=== PATIENT | male | born 1955 | race Caucasian/White ===

== ENCOUNTER 2024-07-22 11:09 | Emergency (ER) | payer MEDICARE, OTHER, SELFPAY ==
[2024-07-22 11:11] VITALS: BP 132/76
[2024-07-22 12:33] VITALS: BMI 26.4
--- NOTE | 2024-07-22 12:49 | ED.GENMED ---
History of Present Illness
General
Chief Complaint: Numbness
Source: patient
Time Seen by Provider: 07/22/24 11:58
History of Present Illness
History of Present Illness:
69yoM with a history of myasthenia gravis and herniated disc presenting for evaluation of left leg numbness. Patient was playing [employer] in the [employer] today around 10 AM when he started to notice tingling in his left anterior thigh. The
paresthesias extended from the hip to the knee. He denies any associated weakness. No other extremities are affected. His symptoms have mostly resolved at this time but now he is having some mild paresthesias in the left lateral hip region.
Patient was on a recent mission trip and returned home 3 days ago. He states he was doing a large amount of physical activity during this trip. He denies any trauma. No back pain, incontinence, saddle anesthesia. He denies any symptoms of a
myasthenia exacerbation currently. He has a history of a herniated disc last year which was managed conservatively. He believes the R L4 disc was affected at that time.
Past History
Past History
ED Past Medical History: None
ED Past Surgical History: Appendectomy
Social History
Tobacco: Non-smoker
Personal:
Living: with family
Employment: Employed (Teacher )
Phy Exam
General Physical Exam
General Presentation: well appearing and no apparent distress
General age: appears stated age
General Skin: warm and dry
General Habitus: normal
General Mental: alert
General Hydration: appears well hydrated
ENT Exam
ENT Exam: normocephalic
Cardiovascular Exam
Cardiovascular Exam: normal peripheral pulses (2+ PT pulses bilaterally)
Pulmonary Exam
Pulmonary Exam: no respiratory distress
Neurological Exam
Neurological Exam: alert, CN II-XII intact, no motor deficits, no sensory deficits and other (5/5 strength in all extremities. No gross sensory deficit appreciated. CN 2-12 grossly intact. Normal finger to nose and heel to belle bilaterally. 2+
patellar reflexes bilaterally.)
[place] Coma Scale
Eye Opening: Spontaneous
Verbal Response: Oriented
Motor Response: Obeys Commands
GCS Total Score: 15
Musculoskeletal Exam
Musculoskeletal Exam: other (No tenderness to lumbar region or L leg. Full ROM of L hip and knee without pain. Negative straight leg raise.)
Skin Exam
Skin Exam: normal color and warm/dry
Psychiatric Exam
Psychiatric Exam: normal mood/affect
Course
Orders/Labs/Results
Orders:
Orders
07/22/24 12:17
CT Lumbar Spine W/o Iv Contras Urgent
Comment:
Reason For Exam: L leg numbness
Vital Signs
Initial and Last Documented VS:
Initial Vital Signs
Temp Pulse Resp BP Pulse Ox
98.1 F 61 18 132/76 98
07/22/24 11:11 07/22/24 11:11 07/22/24 11:11 07/22/24 11:11 07/22/24 11:11
Last Documented Vital Signs
Temp Pulse Resp BP Pulse Ox
98.1 F 58 18 108/54 98
07/22/24 11:11 07/22/24 13:00 07/22/24 13:00 07/22/24 13:00 07/22/24 13:00
MDM/Problems Addressed
Differential Diagnosis Includes:
69yoM here with L anterior thigh paresthesias that began this morning. No associated weakness of the extremity. No other extremities affected. Symptoms mostly resolved currently. Hx of herniated disc. VSS. He is well appearing in no distress. LLE is
neurovascularly intact with normal patellar reflex. Remainder of neuro exam is WNL. Differential diagnosis includes but is not limited to: lumbar radiculopathy, sciatica, doubt CVA
Initial ED plan: Check CT lumbar spine.
*Critical Care Note
Total Time (30-74mins, 75-104mins- exclusive of procedures): Not Applicable
Update Note
Update Note:
CT shows multilevel degenerative changes most pronounced at L4/L5. Findings overall similar to prior MRI last year. On reassessment, his symptoms have completely resolved. No indication for hospitalization at this time. He was advised to
follow-up with his PCP. ED return precautions discussed including any new neurologic symptoms. He expressed understanding and is agreement with plan. He was discharged in stable condition.
ED Attending Note
-
Portions of this chart may have been created with voice recognition software.� Occasional wrong word or��sound alike� substitutions may have occurred due to the inherent limitations of voice recognition software.
Discharge Plan
Departure
Patient Disposition: Home (Routine Discharge)
Date of Disposition: 07/22/24
Time of Disposition: 14:11
Patient with high blood pressure during this ER visit?: No
Discharge Problem:
Paresthesia of left leg
Instructions: Paresthesia (DC)
Prescriptions:
No Action
triamcinolone acetonide [Nasacort] 10 GM aerosol
10 gm NS DAILY
Patient Comments:
2 puffs each nare
pseudoephedrine HCl [Sudogest] 30 MG tablet
30 mg PO BID
Referrals:
Tony Palma DO [Family Provider] -
Activity Restrictions/Additional Instructions:
Please call your family doctor tomorrow to schedule a follow-up appointment. Return to the ER with any new or worsening symptoms.
Interventions
Interventions:
*Risk Screen - Suicide Last Done: 07/22/24 11:14
*General Assessment Last Done: 07/22/24 11:14
*Neglect/Abuse Screening Last Done: 07/22/24 11:14
ED- Fall Risk Assessment Last Done: 07/22/24 12:33
*ED COVID-19 Vaccine History Last Done: 07/22/24 12:33
*Nursing Disposition Last Done: 07/22/24 14:35
ED- Neurological Assessment Last Done: 07/22/24 12:33
Discharge Date and Time
Discharge Date/Time: 07/22/24 14:40
Print Language: [place]IZ[place]
[2024-07-22 13:00] VITALS: BP 108/54
== END 2024-07-22 14:40 | disposition home or self-care (01) ==
LOC: EMR 11:09
PROVIDERS: EMERGENCY PHYSICIAN Emergency Medicine; FAMILY PHYSICIAN Internal Medicine
DX: R20.2 Paresthesia of skin (principal); G70.00 Myasthenia gravis without (acute) exacerbation; Z90.49 Acquired absence of other specified parts of digestive tract
CPT/HCPCS: 99284; 72131

== ENCOUNTER → 2025-06-07 10:17 | Outpatient (REF) | payer MEDICARE, OTHER, SELFPAY ==
[2025-06-07 11:20] LABS: Urine Character Clear (Clear)
[2025-06-07 11:32] LABS: Urine Squamous Cell 0-2 /LPF (Few)
[2025-06-07 11:33] LABS: Urine Red Blood Cell 0-2 /HPF (0-2)
[2025-06-07 12:06] LABS: ALT (SGPT) 28 U/L (0-50); AST (SGOT) 22 U/L (17-59); Albumin 4.5 g/dl (3.5-5.0); Alkaline Phosphatase 92 U/L (38-126); Blood Urea Nitrogen 16 mg/dl (9-20); Calcium 9.9 mg/dl (8.4-10.2); Carbon Dioxide 31 mmol/L (22-30); Chloride 106 mmol/L (98-107); Glucose 197 mg/dl (70-99); Potassium 4.0 mmol/L (3.5-5.1); Sodium 139 mmol/L (135-145); Total Protein 7.1 g/dl (6.3-8.2); eGFR > 60.00
[2025-06-07 12:49] LABS: Glycohemoglobin (HgbA1c) 6.0 % (4.0-5.6)
== END ==
LOC: REG 10:17
PROVIDERS: ATTENDING PHYSICIAN Family Medicine
DX: R81 Glycosuria (principal); R73.01 Impaired fasting glucose
CPT/HCPCS: 36415; 80053; 81003; 81015; 83036; 83935

== ENCOUNTER → 2025-06-10 11:17 | Outpatient (REF) | payer MEDICARE, OTHER, SELFPAY | LOC: RAD 11:17 | PROVIDERS: ATTENDING PHYSICIAN Family Medicine | DX: R81 Glycosuria (principal); R30.0 Dysuria | CPT/HCPCS: 76770 ==